=== PATIENT | female | born 1985 | race Caucasian/White ===

== ENCOUNTER 2017-07-27 08:13 | Emergency (ER) | payer OTHER ==
[~2017-07-27] VITALS: Ht 157.5 cm; Wt 113.4 kg
[~2017-07-27 08:13] MED LIST: ARMOUR THYROID60 M1 PO; CARAFATE1 G PO; DEXILANT30 MG PO; PERCOCET 5/3251 TAB PO; ZANTAC150 M3 PO; ZOFRAN4 MG PO
[2017-07-27] MEDS ORDERED: VITAMIN D400 UNI2 (08:49)
[2017-07-27] MEDS ORDERED: GORDO-VITE E15 GM (08:49)
== END 2017-07-27 11:25 | disposition home or self-care (01) ==
LOC: ER 08:13
DX: R42 Dizziness and giddiness (principal)

== ENCOUNTER 2018-10-29 11:34 | Emergency (ER) | payer OTHER ==
[~2018-10-29] VITALS: Ht 180.3 cm; Wt 102.5 kg
[~2018-10-29 11:34] MED LIST changes: +GORDO-VITE E15 GM; +VITAMIN D400 UNI2
[2018-10-29] MEDS ORDERED: VITAMINA D (12:22)
== END 2018-10-29 15:30 | disposition home or self-care (01) ==
LOC: ER 11:34
DX: R10.2 Pelvic and perineal pain (principal)